=== PATIENT | female | born 1960 | race Caucasian/White ===

== ENCOUNTER 2016-11-25 18:07 | Inpatient (IN) | payer OTHER ==
[~2016-11-25] VITALS: Ht 152.4 cm; Wt 122.1 kg
--- NOTE | ~2016-11-25 | HC ---
[facility] [place] [address] CONSULTATION Name: LETICIA BADILLO Room #: 218-P [facility] IN .R.#: [id number] Admission: 11/25/16 Attend Phys: Sebastián Ramirez MD Discharge: Date of : 58 Report #: [id number] THIS REPORT FOR: //name// CC: Sebastián Martino DATE OF SERVICE: 11/26/2016 HISTORY OF PRESENT ILLNESS: The patient is a 56-year-old white female with history of hypertension who was recently admitted at [facility] for several days because of hypertension and left-sided headache. She underwent a right temporal artery biopsy and was started on IV steroids. She was noted to have had an episode of being incoherent for 20 minutes and underwent evaluation which was noted to reveal a thalamic stroke. She ended up leaving [facility] and came to [facility] for further evaluation. She has been seen by Neurology here at [place] with assessment of a CVA with an apparent thalamic stroke. Records being obtained from . She also has a hypertensive crisis and was noted to have an elevated blood pressure of 211/97. She has dyslipidemia, was started on gemfibrozil. We are seeing her in rehabilitation medicine consultation. PAST MEDICAL HISTORY: Includes hysterectomy and hypertension. HABITS: No history of tobacco or alcohol abuse. ALLERGIES: SHE HAS MULTIPLE ALLERGIES, WHICH ARE NOTED LISTED. MEDICATIONS: Please see the full medication listing. SOCIAL HISTORY: Lives in a house with her spouse, 2 steps in, 12 inside, was premorbidly independent, ambulatory without assisted device. PHYSICAL EXAMINATION: GENERAL: A 56-year-old overweight white female in no obvious distress. VITAL SIGNS: Last recorded temperature 97.8, pulse 110, respirations 18, blood pressure 153/86. The patient is alert, oriented, appropriate. HEENT: Appeared to be benign. NEUROLOGIC: Cranial nerves are grossly intact. Facies are symmetric. She is able to express herself well. She has functional range of motion of both upper extremities without focal weakness. DTRs are trace to 1. In her lower extremities, there is no focal calf swelling, functional range of motion with strength, appearing to be a grade 5/5. DTRs appeared intact. Functionally, she is standby assistance to ambulate 250 feet without a device. She is going up and down stairs without difficulty. Physical therapy has actually discharged her. OT notes that she has good judgement for basic ADLs. [address] [address] CONSULTATION Name: LETICIA BADILLO Room #: 218-P [facility] IN [facility]#: [id number] Admission: 11/25/16 Attend Phys: Sebastián Ramirez MD Discharge: Date of : 58 Report #: [id number] ASSESSMENT: A 56-year-old white female with the following problem list: 1. Cerebrovascular accident with an apparent thalamic stroke. 2. Hypertensive crisis. 3. Status post right temporal artery biopsy with results pending. 4. Exogenous obesity. PLAN: The patient is actually too high level to warrant an acute in-hospital inpatient rehabilitation stay. Would anticipate she should be able to return directly home with family as she further medically stabilizes. She is too high level to warrant an acute in-hospital inpatient rehabilitation stay. Thank you for asking us to assist in this patient's care. By: [id number] [id number] Sam Oconnell MD /nt
--- NOTE | ~2016-11-25 | 2DMMODE ---
[facility] [address] [facility] [facility] [place] [address] 2 D/M-MODE ECHOCARDIOGRAM Name: JIMBOOLGA LIDIADarvinLETICIA Room #: 218-P [facility] IN .#: [id number] Admission: 11/25/16 Attend Phys: Sebastián Ramirez MD Discharge: Date of : 58 Date of Service: 11/26/16 1209 Report #: [id number] THIS REPORT FOR: //name// APPROVED REPORT Study performed: 11/26/2016 09:07:45 EXAM: Comprehensive 2D, Doppler, and color-flow Echocardiogram Patient Location: Bedside Room #: 218 Status: routine Other Information Study Quality: Adequate Indications Elevated Troponin Hypertension/HDD Echo Enhancing Agent Indication: Rule out Shunt Agent(s) / Amount(s) Used: Agitated Saline 7 cc 2D Dimensions RVDd: 30.85 mm LVEF(%): 67.31 (>50%) IVSd: 16.09 (7-11mm) LVOT Diam: 22.12 (18-24mm) LVDd: 46.49 mm PWd: 14.84 (7-11mm) Ascending Ao: 28.89 (22-36mm) LVDs: 29.15 (25-40mm) Aortic Root: 30.09 mm IVC: 2.20 mm Ramírez's LVEF: 67.31 % Volumes Left Atrial Volume (Systole) Single Plane 4CH: 53.96 mL Single Plane 2CH: 65.92 mL LA ESV Index: 31.00 mL/m2 Aortic Valve AoV Peak Glenn.: 2.25 m/s AO Peak Gr.: 20.24 mmHg LVOT Max P.99 mmHg LVOT Max V: 1.41 m/s BORA Vmax: 2.41 cm2 Mitral Valve E/A Ratio: 1.1 [facility] [place] [address] 2 D/M-MODE ECHOCARDIOGRAM Name: ABYLETICIA Room #: 218-P [facility] IN .R.#: [id number] Admission: 11/25/16 Attend Phys: Sebastián Ramirez MD Discharge: Date of : 58 Date of Service: 11/26/16 1209 Report #: [id number] MV Decel. Time: 210.76 ms MV E Max Glenn.: 0.98 m/s MV A Glenn.: 0.93 m/s MV PHT: 61.12 ms IVRT: 69.20 ms Pulmonary Valve PV Peak Glenn.: 1.39 m/s PV Peak Gr.: 7.72 mmHg Pulmonary Vein P Vein S: 0.74 m/s P Vein A: 0.35 m/s P Vein D: 0.50 m/s P Vein A Dur.: 110.7 msec P Vein S/D Ratio: 1.48 Tricuspid Valve TR Peak Glenn.: 3.23 m/s RAP Estimate: 5.00 mmHg TR Peak Gr.: 41.82 mmHg PA Pressure: 47.00 mmHg Left Ventricle The left ventricle is normal size. There is normal LV segmental wall motion. Mild concentric left ventricular hypertrophy. The left ventricular systolic function is normal. The left ventricular ejection fraction is within the normal range. LVEF is 60-65%. Grade I - abnormal relaxation pattern. Right Ventricle The right ventricle is normal size. The right ventricular systolic function is normal. Atria The left atrium size is normal. No shunting by contrast bubble injection Right atrium is at the upper limits of normal. Aortic Valve The aortic valve is normal in structure. No aortic regurgitation is present. There is no aortic valvular stenosis. Mitral Valve The mitral valve is normal in structure. Mild mitral regurgitation. No evidence of mitral valve stenosis. Tricuspid Valve The tricuspid valve is normal in structure. There is trace tricuspid regurgitation. The right atrial pressure is estimated at 5 mmHg. There is moderate pulmonary hypertension with an estimated PAP of [address] [place] [address] 2 D/M-MODE ECHOCARDIOGRAM Name: LETICIA BADILLO Ronan Room #: 218-P [facility] IN .R.#: [id number] Admission: 11/25/16 Attend Phys: Sebastián Ramirez MD Discharge: Date of : 58 Date of Service: 11/26/16 1209 Report #: [id number]. Pulmonic Valve The pulmonary valve is normal in structure. Trace pulmonic regurgitation. Great Vessels The aortic root is normal in size. The ascending aorta is normal in size. IVC is normal in size and collapses >50% with inspiration. Pericardium There is no pericardial effusion. <Conclusion> The left ventricular systolic function is normal. Mild concentric left ventricular hypertrophy. There is normal LV segmental wall motion. LVEF is 60-65%. Grade I diastolic dysfunction Structural valve disease was absent. No significant regurgitant or stenotic lesions Pulmonary artery pressure of 45 mm Hg. No shunting by contrast bubble injection. No pericardial effusion <ELECTRONICALLY SIGNED> By: Corbin Gilliam MD, FACC 11/26/16 1209 08 08 Corbin Gilliam MD, FACC /INF
--- NOTE | ~2016-11-25 | EKG ---
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 : 1960 Requested By: Sj Moyer Order Number: [id number] MD: Corbin Gilliam Measurements Intervals Gaston Rate: 94 P: 51 NC: 134 QRS: 5 QRSD: 92 T: 118 QT: 382 QTc: 478 Interpretive Statements Sinus rhythm Nonspecific ST and T wave abnormality Compared to ECG 11/17/2013 16:51:[address] and T wave abnormality is now present Electronically Signed On 11-27-2016 8:43:56 CDT by Corbin Gilliam [email or web address] <ELECTRONICALLY SIGNED> By: Corbin Gilliam MD, [facility] 11/27/16 0843 [id number] 1836 Corbin Gilliam MD, [facility] /EPI
[2016-11-25 18:07] VITALS: BP 211/97
[~2016-11-25 18:07] MED LIST: BENADRYL25 MG PO; LISINOPRIL10 MG PO; ZOFRAN ODT4 MG PO
[2016-11-25] MEDS ORDERED: LOPRESSOR25 PO (18:53)
[2016-11-25 19:08] LABS: HEMATOCRIT 40.9 % (37.0-47.0); HEMOGLOBIN 13.3 gm/dL (12.0-15.0); MCH 24.5 pg (26.0-34.0); MCHC 32.5 g/dL (28.0-37.0); MCV 75.4 fL (80.0-100.0); RBC 5.42 mil/uL (4.20-5.00); RDW 17.4 % (10.5-14.5); WBC 20.2 thou/uL (4.0-11.0)
[2016-11-25 19:21] LABS: CALCIUM 9.7 mg/dL (8.5-10.1); CREATININE 1.1 mg/dL (0.6-1.0); POTASSIUM 3.9 mmol/L (3.5-5.1)
[2016-11-25 19:24] LABS: APTT 26.6 Seconds (24.5-32.8); PROTIME 10.4 Seconds (9.3-11.4)
[2016-11-25 19:30] LABS: TROPONIN-I 0.12 ng/mL (<0.04-0.07)
[2016-11-25 22:17] VITALS: BP 183/88
[2016-11-25 23:09] VITALS: BP 141/74
[2016-11-26] VITALS (7 sets, daily range): BP systolic 153–186; BP diastolic 82–98
[2016-11-26 08:21] LABS: ABSOLUTE NEUTROPHILS 12.4 thou/uL (1.4-8.2); BASOPHILS 0.2 % (0.0-2.0); EOSINOPHILS 0.1 % (0.0-3.0); HEMATOCRIT 38.5 % (37.0-47.0); HEMOGLOBIN 12.7 gm/dL (12.0-15.0); LYMPHOCYTES 14.3 % (24.0-44.0); MCH 24.8 pg (26.0-34.0); MCHC 33.1 g/dL (28.0-37.0); POLYS 77.4 % (36.0-66.0); RBC 5.13 mil/uL (4.20-5.00); RDW 17.1 % (10.5-14.5)
[2016-11-26 08:22] LABS: MANUAL DIFF NO; PLATELET COUNT 342 thou/uL (150-400)
[2016-11-26 08:48] LABS: CHOLESTEROL 162 mg/dL (<200); HDL CHOLESTEROL 46 mg/dL (>40); LDL CHOLESTEROL 60 mg/dL (<100); TC:HDL 3.5 Ratio (Not establshd); TRIGLYCERIDE 280 mg/dL (<150); VLDL 56 mg/dL (<40)
[2016-11-26 08:51] LABS: ALBUMIN 3.1 g/dL (3.4-5.0); CREATININE 1.2 mg/dL (0.6-1.0); POTASSIUM 3.4 mmol/L (3.5-5.1); TOTAL BILIRUBIN 0.3 mg/dL (<0.1-1.0); TOTAL PROTEIN 7.3 g/dL (6.4-8.2); TROPONIN-I 0.16 ng/mL (<0.04-0.07)
[2016-11-26 09:16] LABS: FOLIC ACID 17.5 ng/mL (8.6-58.9)
[2016-11-27 02:08] LABS: GLYCOHEMOGLOBIN (HGB A1C) 6.5 % (4.8-5.6)
[2016-11-27 04:09] VITALS: BP 174/93
[2016-11-27 07:50] VITALS: BP 200/101
[2016-11-27] MEDS ORDERED: GEMFIBROZIL 60600 M1 PO (10:38)
[2016-11-27] MEDS ORDERED: CLOPIDOGREL75 MG PO (10:38)
[2016-11-27] MEDS ORDERED: LOPRESSOR50 PO (10:38)
[2016-11-27] MEDS ORDERED: COZAAR 50 MG TA50 M1 PO (10:39)
[2016-11-27] MEDS ORDERED: OLMESARTAN MEDO40 MG PO (11:01)
[2016-11-27 11:03] VITALS: BP 200/101
[2016-11-27 12:27] VITALS: BP 200/101
[2016-11-28 12:08] LABS: HEX. PHASE PHOSPHOLIPID 6 sec (0-11)
[2016-11-28 15:06] LABS: DIL. RUSSELL VIPER VENOM 43.9 sec (0.0-47.0)
[2016-11-29] MEDS ORDERED: ATIVAN0.5 M1 PO (23:13)
[2016-11-30 04:05] LABS: PROTEIN C ANTIGEN* 149 % (60-150)
[2016-11-30 16:08] LABS: ALPHA TOCOPHEROL 12.5 mg/L (5.3-16.8)
== END 2016-11-27 12:30 | disposition home or self-care (01) | DRG 545 ==
LOC: ER 18:07 → 2N 21:36 → EROBS 21:36 → 2N 23:19
PROVIDERS: Emergency Medicine; Hospitalist; Nurse Practitioner Family; Psychiatry & Neurology Neurology
DX: M31.6 Other giant cell arteritis (principal); I63.9 Cerebral infarction, unspecified; I16.9 Hypertensive crisis, unspecified; Z68.43 Body mass index [BMI] 50.0-59.9, adult; E66.09 Other obesity due to excess calories; D72.829 Elevated white blood cell count, unspecified; E78.5 Hyperlipidemia, unspecified; I10 Essential (primary) hypertension; Z90.710 Acquired absence of both cervix and uterus; Z88.8 Allergy status to other drugs, medicaments and biological substances; Z88.6 Allergy status to analgesic agent; Z91.041 Radiographic dye allergy status; Z91.013 Allergy to seafood; Z91.040 Latex allergy status; Z79.899 Other long term (current) drug therapy
CPT/HCPCS: 10081

== ENCOUNTER → 2018-12-02 | Outpatient (CLI) | payer OTHER ==
[~2018-12-02] MED LIST changes: +ATIVAN0.5 M1 PO; +AUGMENTIN 500-1 EACH PO; +CARDIZEM30 MG PO; +CLOPIDOGREL75 MG PO; +COZAAR 50 MG TA50 M1 PO; +GEMFIBROZIL 60600 M1 PO; +LOPRESSOR25 PO; +LOPRESSOR50 PO; +OLMESARTAN MEDO40 MG PO
== END ==
LOC: MRI 09:55
DX: M47.816 Spondylosis without myelopathy or radiculopathy, lumbar region (principal); Z90.710 Acquired absence of both cervix and uterus

== ENCOUNTER → 2019-04-17 | Outpatient (CLI) | payer OTHER | LOC: ULTRA 09:25 | DX: E04.1 Nontoxic single thyroid nodule (principal); E07.89 Other specified disorders of thyroid ==

== ENCOUNTER → 2021-05-16 | Outpatient (CLI) | payer OTHER ==
--- NOTE | 2021-05-16 10:41 | NUR ---
PT PREMEDICATED FOR IODINE ALLERGY IN CT. PT GIVEN SOLU-MEDROL 125MG IVP, DIHPHENHYDRAMINE 25MG IVP AND FAMOTIDINE 20MG IVP. PT DENIES REACTION.
== END ==
LOC: CAT 09:00
PROVIDERS: ATTEND Nurse Practitioner
DX: N28.1 Cyst of kidney, acquired (principal); K76.0 Fatty (change of) liver, not elsewhere classified; N28.9 Disorder of kidney and ureter, unspecified